=== PATIENT | male | born 1970 | race Caucasian/White ===

== ENCOUNTER → 2016-03-27 | Outpatient (CLI) | payer OTHER ==
[2015-09-11 17:16] VITALS: BP 118/75
--- NOTE | 2016-03-27 12:26 | KCIC ---
PROCEDURE Bilateral wrist radiographs. HISTORY Bilateral hand and wrist pain since December 2015. Numbness in hand wrist, restrained for 2 hours. M25.531, M25.532. FINDINGS PA, lateral, and oblique views of the left wrist. No acute fracture or dislocation is identified. No focal soft tissue swelling is seen. Mild degenerative change and remodeling is seen involving the distal radial ulnar joint. No erosive changes are identified. PA, lateral, and oblique views of the right wrist. No acute fracture or dislocation is identified. No significant degeneration is seen. No erosive changes are identified. IMPRESSION 1. No acute osseous abnormality identified in either breast. 2. 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 Electronically signed by: Navneet Cabezas MD (Mar 27, 2016 12:24:54)
--- NOTE | 2016-03-27 12:29 | KCIC ---
PROCEDURE Bilateral hand radiographs. HISTORY Bilateral hand and wrist pain since December 2015. Restrained for 2 hours. COMPARISON None. FINDINGS PA, lateral, and oblique views of the left hand. No acute fracture or dislocation is identified. No degeneration or focal soft tissue swelling is seen. No erosive changes are identified. PA, lateral, and oblique views of the right hand. No acute fracture or dislocation is identified. No focal soft tissue swelling is seen. No erosive changes are identified. Mild 2nd and 3rd DIP degeneration is seen. IMPRESSION 1. No acute osseous abnormality identified in either hand. 2. 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 Electronically signed by: Navneet Cabezas MD (Mar 27, 2016 12:27:27)
== END | disposition home or self-care (01) ==
LOC: KCIC 11:31
PROVIDERS: ATTEND Physician Assistant Medical
DX: M25.531 Pain in right wrist (principal)
CPT/HCPCS: 73110; 73130